=== PATIENT | female | born 1940 | race Two or more races ===

== ENCOUNTER 2017-02-27 12:44 | Outpatient (CLI) | payer OTHER | END 2017-02-27 12:56 | disposition home or self-care (01) | LOC: LAB 12:44 | DX: D51.8 Other vitamin B12 deficiency anemias (principal); D72.818 Other decreased white blood cell count; M81.0 Age-related osteoporosis without current pathological fracture; E03.8 Other specified hypothyroidism; D50.8 Other iron deficiency anemias; I10 Essential (primary) hypertension; E55.9 Vitamin D deficiency, unspecified; K90.89 Other intestinal malabsorption; E78.2 Mixed hyperlipidemia; M85.9 Disorder of bone density and structure, unspecified; M81.8 Other osteoporosis without current pathological fracture; E56.1 Deficiency of vitamin K; E83.49 Other disorders of magnesium metabolism ==

== ENCOUNTER → 2017-03-16 13:51 | Outpatient (CLI) | payer OTHER | END | disposition home or self-care (01) | LOC: LAB 13:51 | DX: N60.12 Diffuse cystic mastopathy of left breast (principal); N60.11 Diffuse cystic mastopathy of right breast; Z80.3 Family history of malignant neoplasm of breast; M81.0 Age-related osteoporosis without current pathological fracture; N95.2 Postmenopausal atrophic vaginitis; R97.1 Elevated cancer antigen 125 [CA 125]; N94.6 Dysmenorrhea, unspecified; M94.9 Disorder of cartilage, unspecified; Z12.11 Encounter for screening for malignant neoplasm of colon; R10.9 Unspecified abdominal pain; E78.2 Mixed hyperlipidemia; E11.9 Type 2 diabetes mellitus without complications; R50.2 Drug induced fever; B33.8 Other specified viral diseases; B34.8 Other viral infections of unspecified site; I10 Essential (primary) hypertension; E55.9 Vitamin D deficiency, unspecified; N30.00 Acute cystitis without hematuria; N92.6 Irregular menstruation, unspecified; N93.9 Abnormal uterine and vaginal bleeding, unspecified; D64.89 Other specified anemias; D50.8 Other iron deficiency anemias; D50.9 Iron deficiency anemia, unspecified; E83.32 Hereditary vitamin D-dependent rickets (type 1) (type 2) ==

== ENCOUNTER 2017-04-26 12:34 | Outpatient (CLI) | payer OTHER | END 2017-04-26 13:13 | disposition home or self-care (01) | LOC: RAD 501 12:34 | DX: M54.2 Cervicalgia (principal) ==

== ENCOUNTER 2017-04-26 14:18 | Outpatient (CLI) | payer OTHER | END 2017-04-26 17:00 | disposition home or self-care (01) | LOC: MRI 14:18 | DX: M54.2 Cervicalgia (principal) | CPT/HCPCS: 72141 ==

== ENCOUNTER 2018-02-18 12:10 | Outpatient (CLI) | payer OTHER | END 2018-02-18 12:20 | disposition home or self-care (01) | LOC: RAD 12:10 | DX: R07.89 Other chest pain (principal) ==

== ENCOUNTER 2019-02-20 11:17 | Outpatient (CLI) | payer OTHER | END 2019-02-20 11:20 | disposition home or self-care (01) | LOC: NUCLEAR 11:17 | DX: M81.0 Age-related osteoporosis without current pathological fracture (principal) ==

== ENCOUNTER 2019-02-28 12:37 | Outpatient (CLI) | payer OTHER | END 2019-02-28 15:00 | disposition home or self-care (01) | LOC: LAB 12:37 | DX: M81.0 Age-related osteoporosis without current pathological fracture (principal); E55.9 Vitamin D deficiency, unspecified ==

== ENCOUNTER 2019-04-07 12:21 | Outpatient (CLI) | payer OTHER | END 2019-04-07 12:27 | disposition home or self-care (01) | LOC: LAB 12:21 | DX: E06.3 Autoimmune thyroiditis (principal); I10 Essential (primary) hypertension ==

== ENCOUNTER 2019-05-05 11:55 | Outpatient (CLI) | payer OTHER | END 2019-05-05 12:01 | disposition home or self-care (01) | LOC: LAB 11:55 | DX: D50.8 Other iron deficiency anemias (principal); D51.8 Other vitamin B12 deficiency anemias; D72.818 Other decreased white blood cell count; E78.49 Other hyperlipidemia; M81.0 Age-related osteoporosis without current pathological fracture; E03.8 Other specified hypothyroidism; E83.52 Hypercalcemia; I10 Essential (primary) hypertension; R97.0 Elevated carcinoembryonic antigen [CEA] ==

== ENCOUNTER 2019-08-26 12:29 | Outpatient (CLI) | payer OTHER | END 2019-08-26 12:36 | disposition home or self-care (01) | LOC: LAB 12:29 | PROVIDERS: ATTEND Internal Medicine Nephrology | DX: M81.0 Age-related osteoporosis without current pathological fracture (principal); E55.9 Vitamin D deficiency, unspecified; E03.8 Other specified hypothyroidism; E78.00 Pure hypercholesterolemia, unspecified ==

== ENCOUNTER 2019-10-11 10:03 | Outpatient (CLI) | payer OTHER | END 2019-10-11 10:15 | disposition home or self-care (01) | LOC: TOM 10:03 | PROVIDERS: ATTEND Internal Medicine Gastroenterology | DX: Z12.11 Encounter for screening for malignant neoplasm of colon (principal) ==

== ENCOUNTER 2020-02-08 10:56 | Outpatient (CLI) | payer OTHER | END 2020-02-08 11:06 | disposition home or self-care (01) | LOC: LAB 10:56 | PROVIDERS: ATTEND Internal Medicine Hematology & Oncology | DX: D50.8 Other iron deficiency anemias (principal); I10 Essential (primary) hypertension; D51.8 Other vitamin B12 deficiency anemias; E55.9 Vitamin D deficiency, unspecified; E03.8 Other specified hypothyroidism; R97.0 Elevated carcinoembryonic antigen [CEA]; R97.8 Other abnormal tumor markers; D72.818 Other decreased white blood cell count; E78.49 Other hyperlipidemia; M81.0 Age-related osteoporosis without current pathological fracture ==

== ENCOUNTER 2020-03-28 13:04 | Outpatient (CLI) | payer OTHER | END 2020-03-28 13:09 | disposition home or self-care (01) | LOC: LAB 13:04 | PROVIDERS: ATTEND Internal Medicine Nephrology | DX: E03.8 Other specified hypothyroidism (principal); I10 Essential (primary) hypertension; E78.2 Mixed hyperlipidemia; E55.9 Vitamin D deficiency, unspecified; E78.00 Pure hypercholesterolemia, unspecified ==